=== PATIENT | male | born 1995 | race Asian ===

== ENCOUNTER 2016-05-06 19:41 | Emergency (ER) | payer OTHER ==
[2016-05-06] MEDS ORDERED: IBUPROFEN 600 MG TABLET PO STA (20:46)
[2016-05-06] MEDS ORDERED: IBUPROFEN 600 MG TABLET PO ONE ×2 (20:50→20:53)
[2016-05-06] MEDS ORDERED: AZITHROMYCIN 250 MG TABLET PO STA (21:40)
[2016-05-06] MEDS ORDERED: AZITHROMYCIN 250 MG TABLET PO ONE (21:42)
== END 2016-05-06 22:00 | disposition home or self-care (01) ==
DX: J02.0 Streptococcal pharyngitis (principal)
CPT/HCPCS: 87430; 99283; A9270